=== PATIENT | female | born 1950 | race Caucasian/White ===

== ENCOUNTER 2017-12-24 18:01 | Emergency (ER) | payer MEDICARE, MEDICAID ==
[~2017-12-24] VITALS: Ht 157.4 cm; Wt 103.9 kg
[~2017-12-24 18:01] MED LIST: ASPIRIN81 M1 PO; JANUVIA100 MG PO; LOFIBRA54 MG PO; METFORMIN1000 MG PO; NEURONTIN300 MG PO; PRILOSEC10 MG PO; SYNTHROID0.1 MG PO; VICTOZA6 MG/ML SC; VITAMIN D400 I1 PO; ZOCOR10 MG PO; ZOLOFT100 MG PO
[2017-12-24] MEDS ORDERED: CLINDAMYCIN HC300 MG PO (18:11)
== END 2017-12-24 18:54 | disposition home or self-care (01) ==
LOC: ED 18:01
DX: S81.812A Laceration without foreign body, left lower leg, initial encounter (principal); W26.0XXA Contact with knife, initial encounter; Y93.89 Activity, other specified; Y92.89 Other specified places as the place of occurrence of the external cause; Y99.9 Unspecified external cause status

== ENCOUNTER 2025-07-23 21:15 | Emergency (ER) | payer OTHER ==
[~2025-07-23] VITALS: Ht 157.4 cm; Wt 96.6 kg
[~2025-07-23 21:15] MED LIST changes: +CLINDAMYCIN HC300 MG PO
[2025-07-23] MEDS ORDERED: Bacitracin Zinc 14 GM TUBE T ONE (23:50)
== END 2025-07-24 00:17 | disposition home or self-care (01) ==
LOC: ED 21:15
DX: S50.01XA Contusion of right elbow, initial encounter (principal); S00.03XA Contusion of scalp, initial encounter; R55 Syncope and collapse; I95.9 Hypotension, unspecified; K21.9 Gastro-esophageal reflux disease without esophagitis; E11.9 Type 2 diabetes mellitus without complications; F32.A Depression, unspecified; E78.00 Pure hypercholesterolemia, unspecified; Z98.890 Other specified postprocedural states; Z90.710 Acquired absence of both cervix and uterus; Z88.0 Allergy status to penicillin; Z88.5 Allergy status to narcotic agent; Z88.8 Allergy status to other drugs, medicaments and biological substances; W19.XXXA Unspecified fall, initial encounter; Y93.89 Activity, other specified; Y92.89 Other specified places as the place of occurrence of the external cause; Y99.8 Other external cause status